=== PATIENT | female | born 1975 ===

== ENCOUNTER 2021-02-10 05:59 | Day surgery (SDC) | payer OTHER | END 2021-02-10 17:25 | disposition home or self-care (01) | LOC: CIR.AMB 05:59 | PROVIDERS: ATTEND Colon & Rectal Surgery | DX: K60.5 Anorectal fistula (principal); K64.8 Other hemorrhoids; K64.4 Residual hemorrhoidal skin tags; Z20.822 Contact with and (suspected) exposure to COVID-19 ==